=== PATIENT | male | born 1960 | race Asian ===

== ENCOUNTER 2022-07-19 14:14 | Emergency (ER) | payer OTHER ==
[~2022-07-19] VITALS: Ht 167.6 cm; Wt 63.5 kg
[2022-07-19 15:12] LABS: BASOPHILS % (AUTO) 0.4 % (0.0-2.0); EOSINOPHILS % (AUTO) 0.5 % (0.0-4.0); HEMATOCRIT 36.7 % (36-54); HEMOGLOBIN 11.9 g/dL (14.0-18.0); LYMPHOCYTES # (AUTO) 0.5 K/uL (1.0-5.5); LYMPHOCYTES % (AUTO) 5.1 % (20.5-51.5); MEAN CORPUSCULAR HEMOGLOBIN 27 pg (27-31); MEAN CORPUSCULAR HGB CONC 33 % (32-36); MEAN CORPUSCULAR VOLUME 84 fL (79.0-98.0); MONOCYTES # (AUTO) 0.9 K/uL (0.0-1.0); MONOCYTES % (AUTO) 9.4 % (1.7-9.3); NEUTROPHILS # (AUTO) 8.1 K/uL (1.8-7.7); NEUTROPHILS % (AUTO) 84.6 % (40.0-70.0); PLATELET COUNT (AUTO) 130 K/uL (130-430); RED BLOOD CELL COUNT(AUTO) 4.37 MIL/uL (4.2-6.2); RED CELL DISTRIBUTION WIDTH 15.2 % (9.0-15.0); WHITE BLOOD COUNT (AUTO) 9.6 K/uL (4.8-10.8)
[2022-07-19 15:19] VITALS: BP_SYST 130
[2022-07-19 15:21] LABS: CREATININE 2.26 mg/dL (0.55-1.30)
[2022-07-19 15:23] LABS: ERYTHROCYTE SEDIMENTATION RATE 21 MM/HR (0-15)
[2022-07-19 15:25] LABS: ALBUMIN 3.4 g/dL (3.4-4.8); TOTAL BILIRUBIN 0.8 mg/dL (0.0-1.0); URIC ACID 5.6 mg/dL (2.4-7.0)
--- NOTE | 2022-07-19 15:40 | NUR ---
Patient to ER CHAIR ONE to gown for evaluation. Side rails up. Report given to JOSE JOHNSON.
--- NOTE | 2022-07-19 15:40 | NUR ---
Patient arrived to ed 6 then to chair then to ed4. Dr. Chicas MSE patient. He was here for hitting his left knee on kitchen sink and swelling ensued. He describes it as painful 5/10. Patient unable to walk on it. Patient in bed [address] Chicas set up to drain fluid from left knee.
--- NOTE | 2022-07-19 16:00 | NUR ---
Crutches provided and his left knee wound site was covered and bacitracin applied.
[2022-07-19] MEDS ORDERED: DIPHTH,PERTUSS(ACELL),TET VAC 0.5 ML VIAL (Tdap) I.M. ONE (16:15)
[2022-07-19] MEDS ORDERED: LIDOCAINE 1% 10 MG/ML, 20 ML MDV INJ ONE (16:15)
[2022-07-19] MEDS ORDERED: BACITRACIN 1 GM OINT TP ONE (16:15)
[2022-07-19] MEDS ORDERED: TRAM50TA2 PO (16:42)
--- NOTE | 2022-07-19 17:10 | NUR ---
Patient given written and verbal discharge instructions and verbalizes understanding. ER MD discussed with patient the results and treatment provided. Patient in stable condition. ID arm band removed. IV catheter removed intact and dressing applied, no active bleeding. Rx of tramadol given. Patient educated on pain management and to follow up with PMD. Opportunity for questions provided and answered. Medication side effect fact sheet provided.
== END 2022-07-19 17:10 | disposition home or self-care (01) ==
LOC: SED 14:14
DX: M25.462 Effusion, left knee (principal); M25.562 Pain in left knee; Z79.899 Other long term (current) drug therapy
CPT/HCPCS: 36415; 73564; 80053; 84550; 85025; 85651-TC; 86140; 87070-TC; 87205-TC; 90715; 99284